=== PATIENT | female | born 1940 | race Caucasian/White ===

== ENCOUNTER 2018-08-04 01:01 | Observation (INO) | payer MEDICARE, OTHER ==
[~2018-08-04] VITALS: Ht 154.9 cm; Wt 80.9 kg
[2018-08-04] MEDS ORDERED: GLIP5TAB10 PO (01:22)
[2018-08-04] MEDS ORDERED: METF850T10 PO (01:22)
[2018-08-04] MEDS ORDERED: OMEP40CA6 PO ×2 (01:22→14:51)
[2018-08-04] MEDS ORDERED: SIMV20TA3 PO (01:22)
[2018-08-04] MEDS ORDERED: LOSA100T7 PO (01:22)
[2018-08-04] MEDS ORDERED: NITROGLYCERIN SINGLE TAB 0.4 MG SL PRN (01:30)
[2018-08-04] MEDS ORDERED: ASPIRIN 81 MG TABLET CHEW PO ONE (01:30)
[2018-08-04] MEDS ORDERED: ASPIRIN 81 MG TABLET CHEW ONE (01:34)
[2018-08-04] MEDS ORDERED: NITROGLYCERIN SINGLE TAB 0.4 MG SL ONE (01:34)
[2018-08-04 01:37] LABS: BASOPHILS # (AUTO) 0.04 x10^3/uL (0-0.1); BASOPHILS % (AUTO) 1 % (0-1); EOSINOPHILS # (AUTO) 0.47 x10^3/uL (0-0.4); EOSINOPHILS % (AUTO) 6 % (1-7); LYMPHOCYTES # (AUTO) 2.76 x10^3/uL (1-3.4); LYMPHOCYTES % (AUTO) 33 % (22-44); MD NO; MEAN CORPUSCULAR HEMOGLOBIN 30.5 pg (27.0-34.8); MEAN CORPUSCULAR HGB CONC 33.9 g/dL (32.4-35.8); MEAN CORPUSCULAR VOLUME 90.1 fL (80-100); MONOCYTES # (AUTO) 0.85 x10^3/uL (0.2-0.8); MONOCYTES % (AUTO) 10 % (2-9); NEUTROPHILS # (AUTO) 4.14 x10^3/uL (1.8-6.8); NEUTROPHILS % (AUTO) 50 % (42-75); PLATELET COUNT 211 x10^3/uL (130-400); RED BLOOD COUNT 4.09 x10^6/uL (3.82-5.3); RED CELL DISTRIBUTION WIDTH 14.3 % (9.6-15.2)
[2018-08-04 01:49] LABS: ALANINE AMINOTRANSFERASE 29 U/L (12-78); ALBUMIN 3.5 g/dL (3.4-5.0); ANION GAP 11 mmol/L (5-15); CALCIUM 9.4 mg/dL (8.5-10.1); CHLORIDE 105 mmol/L (98-107); CREATININE 1.25 mg/dL (0.55-1.02)
[2018-08-04 01:53] LABS: ALKALINE PHOSPHATASE 106 U/L (45-117); BILIRUBIN,TOTAL 0.4 mg/dL (0.2-1.0); TOTAL PROTEIN 7.8 g/dL (6.4-8.2); TROPONIN I < 0.015 ng/mL (0.000-0.045)
[2018-08-04] MEDS ORDERED: SODIUM CHLORIDE 0.9% 1,000 ML IV SCH (04:21)
[2018-08-04] MEDS ORDERED: ONDANSETRON 2MG/ML, 2ML IVPush PRN (04:30)
[2018-08-04] MEDS ORDERED: morphine SULFATE 10 MG/ML, 1ML IVPush PRN (04:30)
[2018-08-04] MEDS ORDERED: hydrALAzine 20 MG/ML, 1ML IVPush PRN (04:30)
[2018-08-04 04:47] VITALS: BP 147/87
[2018-08-04 05:04] LABS: TROPONIN I < 0.015 ng/mL (0.000-0.045)
[2018-08-04 05:18] LABS: CHOL/HDL RATIO 3.3; LDL/HDL RATIO 1.5 (0.5-3.0)
[2018-08-04 06:34] VITALS: BP 130/74
[2018-08-04] MEDS: INSULIN LISPRO 100 UNITS/ML, PEN SQ-INSULIN SCH ×2 (07:00→11:31)
[2018-08-04] MEDS ORDERED: LOSARTAN 50MG TABLET PO SCH (09:00)
[2018-08-04] MEDS ORDERED: FAMOTIDINE 20 MG/2 ML IVPush SCH (09:00)
[2018-08-04] MEDS ORDERED: REGADENOSON 0.4 MG/5 ML SYRINGE ONE (09:02)
[2018-08-04 12:09] VITALS: BP 143/82
[2018-08-04] MEDS ORDERED: OMEPRAZOLE 20 MG CAPSULE.DR PO SCH (21:00)
== END 2018-08-04 16:25 | disposition home or self-care (01) ==
LOC: ED 01:47 → EDIP 03:55 → INTOOBSV 03:55 → 5SO 04:33 → DCLOUNGE 16:20
PROVIDERS: ADMIT Hospitalist; ATTEND Hospitalist
DX: R07.89 Other chest pain (principal); E11.9 Type 2 diabetes mellitus without complications; I10 Essential (primary) hypertension; E66.9 Obesity, unspecified; K21.9 Gastro-esophageal reflux disease without esophagitis; Z79.899 Other long term (current) drug therapy
CPT/HCPCS: 36415; 71045; 78452; 80053; 80061; 82962; 84484; 85025; 93005; 93017; 96372; 96374; 99285; A9502; C9898; G0378; J1815; J2785; J3490; J7030